=== PATIENT | female | born 1945 | race Caucasian/White ===

== ENCOUNTER 2020-01-17 12:39 | Inpatient (IN) | payer OTHER, MEDICARE ==
[~2020-01-17] VITALS: Ht 172.7 cm; Wt 99.8 kg
[~2020-01-17 12:39] MED LIST: ATOR20TA PO; ISOS30TA7 PO; LOSA25TA3 PO; METO50TA16 PO; WARF2.5T PO
--- NOTE | 2020-01-17 12:45 | NUR ---
BIB [facility] 39 FROM HOME, ON & OFF FEVER X 4 DAYS, DIARRHEA X 2 DAYS, LOW BP, NS 200 ML GIVEN, BLOOD SUGAR 220, TO ER BED 8, HOOKED TO BP CUFF AND POX, VSS. PATIENT STATES "FELT DIZZY AND ALMOST PASSED OUT." PATIENT STATES "I FEEL FINE NOW". NOTED W LAC 18G PEIPHERAL IV LINE, PATENT AND FLUSHING. AAO x 4, BREATHING EVEN AND UNLABORED. ND NOTED. AWAITING MD RODRIGUES.
--- NOTE | 2020-01-17 12:45 | NUR ---
DR KIRBY AT BEDSIDE
[2020-01-17] MEDS ORDERED: IV NS 0.9% 1,000 ML BAG IV ONE (13:00)
[2020-01-17 13:07] LABS: WHITE BLOOD COUNT (AUTO) 5.5 K/uL (4.3-11.0)
[2020-01-17 13:14] LABS: BASOPHILS # (AUTO) 0.1 /CMM (0.0-0.2); BASOPHILS % (AUTO) 0.9 % (0.0-2.0); EOSINOPHILS % (AUTO) 0.5 % (0.0-6.0); HEMATOCRIT 36 % (33-45); HEMOGLOBIN 11.9 g/dL (11.5-14.8); LYMPHOCYTES # (AUTO) 0.8 /CMM (0.8-4.8); LYMPHOCYTES % (AUTO) 15.2 % (20.0-44.0); MEAN CORPUSCULAR HGB CONC 33 g/dl (31.0-36.0); MEAN CORPUSCULAR VOLUME 93 fL (82-100); MONOCYTES # (AUTO) 0.5 /CMM (0.1-1.30); MONOCYTES % (AUTO) 8.5 % (2.0-12.0); NEUTROPHILS # (AUTO) 4.1 /CMM (1.8-8.9); NEUTROPHILS % (AUTO) 74.9 % (43.0-81.0); PLATELET COUNT (AUTO) 184 /CMM (150-450); RED BLOOD CELL COUNT(AUTO) 3.87 MIL/uL (4.0-5.2)
[2020-01-17 13:24] LABS: CALCIUM, SERUM 9.6 mg/dL (8.5-10.1); CARBON DIOXIDE 23 mmol/L (21-32); CHLORIDE 98 mmol/L (98-107); CREATININE 1.3 mg/dL (0.6-1.3); GLUCOSE 237 mg/dL (74-106); POTASSIUM 3.7 mmol/L (3.5-5.1); SODIUM SERUM 135 mmol/L (136-145); UREA NITROGEN, BLOOD 18 mg/dL (7-18)
[2020-01-17] MEDS ORDERED: ESCI10TA PO (13:28)
[2020-01-17] MEDS ORDERED: LEVO25TA9 PO (13:28)
[2020-01-17] MEDS ORDERED: ANAS1TAB50 PO (13:28)
[2020-01-17] MEDS ORDERED: AMLO-213 PO (13:28)
[2020-01-17] MEDS ORDERED: INSU100V7 SQ (13:28)
[2020-01-17] MEDS ORDERED: INSU100I14 SQ (13:28)
[2020-01-17 13:29] LABS: ALANINE AMINOTRANSFERASE 13 U/L (12-78); ALBUMIN 3.8 g/dL (3.4-5.0); ALKALINE PHOSPHATASE 56 U/L (46-116); ASPARTATE AMINOTRANSFERASE 17 U/L (15-37); BILIRUBIN,DIRECT 0.3 mg/dL (0.0-0.2); BILIRUBIN,TOTAL 1.4 mg/dL (0.2-1.0); TOTAL PROTEIN, SERUM 7.7 g/dL (6.4-8.2)
--- NOTE | 2020-01-17 14:30 | NUR ---
MARQUITA HULL DNP AT BEDSIDE
--- NOTE | 2020-01-17 14:37 | NUR ---
RAPID COVID AND PCR SWAB DONE AND SENT TO LAB
[2020-01-17] MEDS ORDERED: DEXTROSE 50%-WATER 50 ML DISP.SYRIN IV PRN (15:30)
[2020-01-17] MEDS ORDERED: TEMAZEPAM 15 MG CAPSULE PO PRN (15:30)
[2020-01-17] MEDS ORDERED: MAG HYDROX/AL HYDROX/SIMETH 30 ML UDC PO PRN (15:30)
[2020-01-17] MEDS ORDERED: MORPHINE SULFATE INJ 2 MG/ML DISP.SYRIN IV PRN (15:30)
[2020-01-17] MEDS ORDERED: ENOXAPARIN SODIUM 40 MG/0.4 ML DISP.SYRIN SQ SCH (15:30)
[2020-01-17] MEDS ORDERED: HYDROCODONE/APAP 5/325MG TABLET PO PRN (15:30)
[2020-01-17] MEDS ORDERED: Z GUARD REMEDY 2 OZ OINT TP PRN (15:30)
[2020-01-17] MEDS ORDERED: ONDANSETRON HCL/PF 4 MG/2 ML VIAL IVP PRN (15:30)
[2020-01-17] MEDS ORDERED: MAGNESIUM HYDROXIDE 30 ML UDC PO PRN (15:30)
--- NOTE | 2020-01-17 15:52 | NUR ---
[facility] ASSIGNED- 119-1
--- NOTE | 2020-01-17 16:22 | NUR ---
REPORT GIVEN TO ARNAUD MCFARLAND OF TELE UNIT
[2020-01-17 17:00] VITALS: BP 140/75
--- NOTE | 2020-01-17 17:00 | NUR ---
BIBLICAL STUDIES PROFESSOR NOTES RECEIVED PATIENT FROM ER, DX ACUTE DIARRHEA WITH FEVER, POSSIBLE COVID BY MARQUITA HULL. ALERT ORIENTED X 3, ON ROOM AIR, NO SOB, NOT IN ANY DISTRESS. A FLUTTER HR 110 ON MONITOR. MD AWARE. DENIES CHEST PAIN/DISCOMFORT. IV ACCESS TO LEFT AC G 18 FLUSHES WELL, SITE CLEAR. PATIENT IN POST MASTECTOMY RIGHT, SIGN POSTED - NO BLOOD DRAW, NO BP ON RIGHT ARM. SEE NURSING FLOWSHEET FOR SKIN ISSUES. ON [facility] DIET. UNIT ORIENTATION AND USE OF CALL LIGHT DONE, SAFETY MEASURES IN PLACE, SR UP X 2, CALL LIGHT WITHIN REACH. WILL CONT TO MONITOR.
[2020-01-17 17:27] LABS: C-REACTIVE PROTEIN 0.3 mg/dL (0.0-0.9)
[2020-01-17] MEDS: LOSARTAN POTASSIUM 25 MG TABLET PO SCH (18:21)
[2020-01-17] MEDS: ISOSORBIDE MONONITRATE (30MG) 30 MG TAB.SR.24H PO SCH (18:21)
[2020-01-17] MEDS: METOPROLOL TARTRATE 50 MG TABLET PO SCH (18:22)
[2020-01-17] MEDS: BLOOD SUGAR DIAGNOSTIC 1 EACH STRIP IN SCH ×2 (18:23→22:55)
[2020-01-17] MEDS: WARFARIN SODIUM 2.5 MG TABLET PO SCH (18:48)
[2020-01-17] MEDS: KETOCONAZOLE 2% CREAM 15 GM TUBE TP SCH (18:49)
[2020-01-17] MEDS: IV NS 0.9% 1,000 ML IV PRN (18:53)
[2020-01-17] MEDS: INSULIN REGULAR, HUMAN 100 UNIT/ML 3 ML VIAL SQ PRN ×2 (18:53→22:57)
--- NOTE | 2020-01-17 19:23 | NUR ---
RN NOTES ALL NEEDS MET. PATIENT EATING DINNER. PATIENT REQUESTED TO HAVE PICTURE OF BREASTFOLD TAKEN BEFORE BED. ACCUCHECK DONE BS 218 MG/DL, 4 UNITS HUM R GIVEN PER SLIDING SCALE. IVF AT 75 ML/HR INFUSING WELL. SAFETY MEASURES IN PLACE. CALL LIGHT WITHIN REACH. ENDORSED TO NEXT SHIFT FOR LACIE.
[2020-01-17] MEDS: CEFTRIAXONE 1 G in IV D5W 50 ML IV SCH (19:54)
[2020-01-17 20:00] VITALS: BP 153/78
[2020-01-17] MEDS: ATORVASTATIN 10 MG TABLET PO SCH (22:33)
[2020-01-17] MEDS: INSULIN GLARGINE, 100 UNIT/ML CARTRIDGE SQ SCH (22:56)
[2020-01-18] VITALS: BP_SYST 121; BP_SYST 157; BP_DIAS 74; BP_DIAS 75
[2020-01-18] MEDS: ACETAMINOPHEN 325 MG TABLET PO PRN ×2 (00:08→16:54)
[2020-01-18 04:00] VITALS: BP 135/80
[2020-01-18 05:54] LABS: BILIRUBIN,URINE NEGATIVE (NEGATIVE); BLOOD, URINE TRACE-INTA Ery/uL (NEGATIVE); COLOR,URINE YELLOW (YELLOW); LEUKOCYTE ESTERASE ,URINE SMALL (NEGATIVE); NITRITE, URINE POSITIVE (NEGATIVE); PROTEIN,URINE NEGATIVE (NEGATIVE); UGLUCOSE 250 MG/DL mg/dL (NEGATIVE); UROBILINOGEN,URINE 0.2 EU/dL (0.2)
[2020-01-18 06:00] LABS: BACTERIA,URINE 2+ /HPF (None Seen); WBC,URINE 21-50 /HPF (0-3)
[2020-01-18 06:01] LABS: SQUAMOUS EPITHELIAL CELL,UR Moderate /HPF (None Seen); URINE AMORPHOUS URATE Moderate /HPF (None Seen)
[2020-01-18 06:23] LABS: BASOPHILS % (AUTO) 0.8 % (0.0-2.0); EOSINOPHILS % (AUTO) 0.6 % (0.0-6.0); HEMATOCRIT 34 % (33-45); HEMOGLOBIN 11.3 g/dL (11.5-14.8); LYMPHOCYTES # (AUTO) 1.3 /CMM (0.8-4.8); LYMPHOCYTES % (AUTO) 21.9 % (20.0-44.0); MEAN CORPUSCULAR HGB CONC 34 g/dl (31.0-36.0); MEAN CORPUSCULAR VOLUME 90 fL (82-100); MONOCYTES # (AUTO) 0.5 /CMM (0.1-1.30); MONOCYTES % (AUTO) 8.4 % (2.0-12.0); NEUTROPHILS # (AUTO) 4.1 /CMM (1.8-8.9); NEUTROPHILS % (AUTO) 68.3 % (43.0-81.0); PLATELET COUNT (AUTO) 182 /CMM (150-450); RED BLOOD CELL COUNT(AUTO) 3.71 MIL/uL (4.0-5.2)
--- NOTE | 2020-01-18 07:00 | NUR ---
RN CLOSING NOTES, PATIENT ASLEEP AT THIS TIME, BREATHING EVEN AND UNLABORED, NO SOB/ACUTE DISTRESS THROUGHOUT THE NIGHT, AFIB CONTROLLED IN TELE MONITOR, NO BOWEL MOVEMENT THROUGHOUT THE NIGHT, NO DIARRHEA EPISODES, WILL ENDORSE TO DAY NURSE TO COLLECT STOOL FOR C-DIFF, UNABLE TO EXPECTORATE EITHER FOR SPUTUM COLLECTION, URINE SENT TO LAB, IV IN LEFT AC AND IVF AT 75 ML/HR INFUSING WELL, AN D PATIENT TOLERATED WELL, SAFETY MEASURES IN PLACE, CALL LIGHT WITHIN REACH, OTHERWISE NO CHANGE I CONDITION DURING THE NIGHT, WILL ENDORSE CONTINUITY OF CARE TO ONCOMING NURSE.
[2020-01-18 07:05] LABS: CREATININE 0.9 mg/dL (0.6-1.3); MAGNESIUM 1.9 mg/dL (1.8-2.4); PHOSPHORUS 3.1 mg/dL (2.5-4.9); POTASSIUM 3.5 mmol/L (3.5-5.1)
[2020-01-18 07:08] LABS: THYROID STIMULATING HORMONE 0.014 uIU/mL (0.358-3.74)
--- NOTE | 2020-01-18 07:30 | NUR ---
RN OPENING NOTES PATIENT PRESENT IN BED, SITTING AND READING HER DARSHAN, A/OX4, ON ROOM AIR, TOLERATING WELL, NO S/SX OF DISTRESS NOTED, NO SOB, DENIES PAIN OR DISCOMFORT, SPO2 IS 98%, MOTIVATED TO SELF CARE, PATIENT IS O TELE MONITOR WITH ST OF 101, FISHER NOTED UNDER L BREAST FOLD, IV LINE NOTED ON L AC G18, PATENT AND INTACT, FLUSHES WELL, RUNNING NS @75 CC/HR, TOLERATING WELL, SAFETY MEASURES IN PLACE, BED IS LOCKED, IN LOWEST POSITION, HOB ELEVATED, FRANCISCO JAVIER LIGHT IN REACH, WILL CONT TO MONITOR
[2020-01-18 08:00] VITALS: BP 136/71
[2020-01-18] MEDS: BLOOD SUGAR DIAGNOSTIC 1 EACH STRIP IN SCH ×4 (08:25→21:27)
[2020-01-18] MEDS: INSULIN REGULAR, HUMAN 100 UNIT/ML 3 ML VIAL SQ PRN ×4 (08:48→21:40)
[2020-01-18] MEDS: LEVOTHYROXINE SODIUM 25 MCG TABLET PO SCH (08:51)
[2020-01-18] MEDS: AMLODIPINE BESYLATE 10 MG TABLET PO SCH (08:51)
[2020-01-18] MEDS: ISOSORBIDE MONONITRATE (30MG) 30 MG TAB.SR.24H PO SCH ×2 (08:52→16:55)
[2020-01-18] MEDS: METOPROLOL TARTRATE 50 MG TABLET PO SCH (08:52)
[2020-01-18] MEDS: ANASTROZOLE 1 MG TABLET PO SCH (08:57)
[2020-01-18] MEDS: ESCITALOPRAM OXALATE (10 MG) 10 MG TABLET PO SCH (09:18)
[2020-01-18] MEDS: KETOCONAZOLE 2% CREAM 15 GM TUBE TP SCH ×2 (09:18→16:55)
[2020-01-18] MEDS ORDERED: ENOXAPARIN SODIUM 40 MG/0.4 ML DISP.SYRIN SQ SCH (09:30)
[2020-01-18] MEDS ORDERED: METOPROLOL TARTRATE 50 MG TABLET PO SCH (09:30)
[2020-01-18] MEDS ORDERED: ZOLPIDEM TARTRATE 5 MG TABLET PO PRN (10:30)
[2020-01-18] MEDS: IV NS 0.9% 1,000 ML IV PRN (11:25)
[2020-01-18 12:00] VITALS: BP 126/76
[2020-01-18] MEDS: METOPROLOL TARTRATE 25 MG TABLET PO SCH ×2 (12:19→17:33)
--- NOTE | 2020-01-18 16:50 | NUR ---
complains on headache 5/10, will administer PRN pain med
[2020-01-18] MEDS: LOSARTAN POTASSIUM 25 MG TABLET PO SCH (17:33)
[2020-01-18] MEDS: WARFARIN SODIUM 2.5 MG TABLET PO SCH (18:11)
--- NOTE | 2020-01-18 18:48 | NUR ---
RN CLOSING NOTES PATIENT REMAINS IN BED, CLEANED, DENIES PAIN OR DISCOMFORT, RESPIRATIONS IS EVEN AND UNLABORED, TELE-MONITOR A-FIB 97,IV LINE IS PATENT, INTACT AND FLUSHED, TOLERATING IV HYDRATION WELL, COMFORT NEEDS ATTENDED, EDUCATION REGARDING CHEST PAIN PROVIDED, SAFETY MEASURES IN PLACE, CALL LIGHT IN REACH, BED IS LOCKED IN LOWEST POSITION, WILL ENDORSE TO OM SHIFT RN FOR LACIE
--- NOTE | 2020-01-18 19:20 | NUR ---
RN OPENING NOTES RECEIVED PT IN BED. ASLEEP. PT ON ROOM AIR. PT ABLE TO MAKE NEEDS KNOWN. NO S/S OF RESP DISTRESS OR SHORTNESS OF BREATH. BREATHING IS EVEN AND UNLABORED AT THIS TIME. ON TELE MONITORING SINUS TACHY AND CONTROLLED AFIB. CURRENTLY PT HAS HEART RATE OF 104 BASELINE TO PT. PT IS AMBULATORY WITH ASSIST. BELONGINGS ARE AT BEDSIDE AND WITH PT. PT DENIES PAIN AT THIS TIME. IV SITE LEAKING, WILL RE INSERT. BED IS LOCKED IN LOWEST POSITION. BED ALARM ON. ID BAND ON. SIDE RAILS UP X2. ID BAND ON. CALL LIGHT WITHIN REACH. WILL CONTINUE TO CLOSELY MONITOR.
[2020-01-18 20:00] VITALS: BP 123/65
[2020-01-18] MEDS: CEFTRIAXONE 1 G in IV D5W 50 ML IV SCH (20:08)
[2020-01-18] MEDS: ATORVASTATIN 10 MG TABLET PO SCH (21:27)
[2020-01-18] MEDS: INSULIN GLARGINE, 100 UNIT/ML CARTRIDGE SQ SCH (21:43)
[2020-01-19] VITALS: BP 121/74
[2020-01-19] MEDS: METOPROLOL TARTRATE 25 MG TABLET PO SCH ×3 (01:09→12:53)
[2020-01-19] MEDS: ACETAMINOPHEN 325 MG TABLET PO PRN (01:10)
--- NOTE | 2020-01-19 01:22 | NUR ---
PT HAS TEMP OF 99.9. PT INSISTS SHE IS COLD,TYLENOL GIVEN PRN. WILL CONTINUE TO MONITOR.
--- NOTE | 2020-01-19 03:00 | NUR ---
LAB [facility] REPORTED TO CHARGE NURSE THAT PCR COVID IS NEGATIVE FOR PT. AWARE. WILL F/U WITH NURSING CHIEF CLINICAL OFFICER.
[2020-01-19 04:00] VITALS: BP 137/75
[2020-01-19] MEDS: IV NS 0.9% 1,000 ML IV PRN (04:30)
--- NOTE | 2020-01-19 05:28 | NUR ---
RN OPENING NOTES RECEIVED PT IN BED. ASLEEP. PT ON ROOM AIR. PT ABLE TO MAKE NEEDS KNOWN. NO S/S OF RESP DISTRESS OR SHORTNESS OF BREATH. BREATHING IS EVEN AND UNLABORED AT THIS TIME. ON TELE MONITORING SINUS TACHY AND CONTROLLED AFIB. CURRENTLY PT HAS HEART RATE OF 104ASELINE TO PT. PT IS AMBULATORY WITH ASSIST. BELONGINGS ARE AT BEDSIDE AND WITH PT. PT DENIES PAIN AT THIS TIME. IV SITE LEAKING, WILL RE INSERT. BED IS LOCKED IN LOWEST POSITION. BED ALARM ON. ID BAND ON. SIDE RAILS UP X2. ID BAND ON. CALL LIGHT WITHIN REACH. WILL CONTINUE TO CLOSELY MONITOR. Addendum: 01/19/20 at 0530 by NITA FRAUSTO RN DISREGARD THIS NOTE. WRONG TIME
--- NOTE | 2020-01-19 07:40 | NUR ---
RN CLOSING NOTES PT IS CURRENTLY RESTING. PT IS STILL ON TELE MONITORING, CONTROLLED AFIB PRESENT PT BASELINE. NO CHANGES THROUGHOUT THE NIGHT. HEART RATE IS 104 BASELINE TO PT. PT IS ON ROOM AIR. NO S/S OF RESPIRATORY DISTRESS NOTED. BREATHING IS EVEN AND UNLABORED. NO SHORTNESS OF BREATH NOTED. SATURATING WELL 97% PT IS RECEIVING 0.45% PT STILL ON IV FLUIDS OF NORMAL SALINE 0.9% AT 75ML/HR. NO S/S OF INFILTRATION NOTED AT THIS TIME. NO BOWEL MOVEMENT ON MY SHIFT. SAFETY MEASURES IN PLACE. PT DENIES PAIN. AFEBRILE. HEAD OF BED ELEVATED 40 DEGREES. SIDE RAILS UP X2. BED IS LOCKED IN LOWEST POSITION WITH BED ALARM ON. CALL LIGHT WITHIN REACH. ENDORSED TO AM NURSE FOR CONTINUATION OF CARE.
[2020-01-19 08:00] VITALS: BP 131/58
--- NOTE | 2020-01-19 08:15 | NUR ---
PT RECEIVED IN BED, ON RA O2 SATURATION 96%. NO RESPIRATORY DISTRESS OR SOB. TELE ORDERED TO BE DC, NOW MS PATIENT. PT IS AMB WITH ASSIST. PT HAS BREASTFOLD RASH. PT ON CCHO DIET. PT HAS SLEFT UPPER ARM #20 RUNNING NS AT 75 ML/HR. NO SIGNS OF INFECTION OR INFILTRATION. BED IN LOCKED LOWEST POSITION, CALL LIGHT WITHIN REACH. ALL SAFETY MEASURES IN PLACE. WILL CONTINUE TO MONITOR CLOSELY
[2020-01-19] MEDS: ISOSORBIDE MONONITRATE (30MG) 30 MG TAB.SR.24H PO SCH (09:00)
[2020-01-19] MEDS: ESCITALOPRAM OXALATE (10 MG) 10 MG TABLET PO SCH (09:00)
[2020-01-19] MEDS: AMLODIPINE BESYLATE 10 MG TABLET PO SCH (09:00)
[2020-01-19] MEDS: LEVOTHYROXINE SODIUM 25 MCG TABLET PO SCH (09:00)
[2020-01-19] MEDS: KETOCONAZOLE 2% CREAM 15 GM TUBE TP SCH (09:01)
[2020-01-19] MEDS: BLOOD SUGAR DIAGNOSTIC 1 EACH STRIP IN SCH ×2 (09:01→13:04)
[2020-01-19] MEDS: ANASTROZOLE 1 MG TABLET PO SCH (09:02)
[2020-01-19 12:53] VITALS: BP 121/69
[2020-01-19] MEDS: INSULIN REGULAR, HUMAN 100 UNIT/ML 3 ML VIAL SQ PRN (12:59)
--- NOTE | 2020-01-19 14:20 | NUR ---
PT VITALS PRIOR TO DC: 98.8, PULSE 105, RESP 20, 97% O2 SAT, BP 121/69. ALL PATIENT DISCHARGE INFORMATION GIVEN AND RECEIVED BY PATIENT. PATIENT VERBALIZES UNDERSTANDING OF DISCHARGE INFORMATION. PT TRANSPORTED VIA WHEELCHAIR BY METEOROLOGICAL AIDE TO PT DAUGHTER. ALL BELONGINGS SIGNED BY PT AND STAFF.
--- NOTE | 2020-01-19 14:24 | NUR ---
PT ARMBANDS AND IV REMOVED
== END 2020-01-19 14:25 | disposition home or self-care (01) | DRG 393 ==
LOC: ER 12:46 → TELE1 16:11 → MEDSG1 01-19 08:03
PROVIDERS: ADMIT Nurse Practitioner Acute Care; ATTEND Nurse Practitioner Acute Care
DX: K52.1 Toxic gastroenteritis and colitis (principal); N17.0 Acute kidney failure with tubular necrosis; N39.0 Urinary tract infection, site not specified; E87.1 Hypo-osmolality and hyponatremia; I50.32 Chronic diastolic (congestive) heart failure; I48.20 Chronic atrial fibrillation, unspecified; B49 Unspecified mycosis; I48.92 Unspecified atrial flutter; R19.7 Diarrhea, unspecified; E03.9 Hypothyroidism, unspecified; E78.5 Hyperlipidemia, unspecified; E66.9 Obesity, unspecified; E11.22 Type 2 diabetes mellitus with diabetic chronic kidney disease; N18.9 Chronic kidney disease, unspecified; I25.5 Ischemic cardiomyopathy; I25.10 Atherosclerotic heart disease of native coronary artery without angina pectoris; Z95.1 Presence of aortocoronary bypass graft; I12.9 Hypertensive chronic kidney disease with stage 1 through stage 4 chronic kidney disease, or unspecified chronic kidney disease; Z79.811 Long term (current) use of aromatase inhibitors; Z79.01 Long term (current) use of anticoagulants; Z79.4 Long term (current) use of insulin; Z79.899 Other long term (current) drug therapy; Z85.3 Personal history of malignant neoplasm of breast; Z90.11 Acquired absence of right breast and nipple; F32.9 Major depressive disorder, single episode, unspecified; E86.1 Hypovolemia; Z90.49 Acquired absence of other specified parts of digestive tract; Z98.890 Other specified postprocedural states; Z96.60 Presence of unspecified orthopedic joint implant; Z20.828 Contact with and (suspected) exposure to other viral communicable diseases; B96.89 Other specified bacterial agents as the cause of diseases classified elsewhere; Z68.30 Body mass index [BMI] 30.0-30.9, adult; Z87.440 Personal history of urinary (tract) infections; T36.95XA Adverse effect of unspecified systemic antibiotic, initial encounter; Y92.009 Unspecified place in unspecified non-institutional (private) residence as the place of occurrence of the external cause; N13.9 Obstructive and reflux uropathy, unspecified
CPT/HCPCS: 36415; 71045-TC; 80048-TC; 80061-TC; 80076-TC; 81001; 82728-TC; 82962-TC; 83615-TC; 83735-TC; 83880; 84100-TC; 84443-TC; 84484-TC; 85025-TC; 85610-TC; 85730-TC; 86140-TC; 86803; 86850-TC; 87040-TC; 87045-TC; 87081-TC; 87086-TC; 87806; 89055; 97112-TC; 97116-TC; 97530-TC; C9803; G0378; J0696; J1650; J1815; J7030; J7060; U0003